=== PATIENT | male | born 1950 | race Caucasian/White ===

== ENCOUNTER 2021-02-21 22:04 | Emergency (ER) | payer MEDICARE, OTHER ==
[2021-02-21 23:34] LABS: HEMOGLOBIN 13.9 gm/dl (14.0-17.5); RED BLOOD COUNT 4.17 M/UL (4.20-5.50); WHITE BLOOD COUNT 11.2 K/UL (4.5-11.0)
[2021-02-22] MEDS ORDERED: PERCOCET 5-3251 EACH PO (01:50)
[2021-02-22] MEDS ORDERED: FLOMAX 0.4 MG0.4 MG PO (01:50)
== END 2021-02-22 02:20 | disposition home or self-care (01) ==
LOC: ER1 22:04
PROVIDERS: Emergency Medicine
DX: N13.2 Hydronephrosis with renal and ureteral calculous obstruction (principal); N28.9 Disorder of kidney and ureter, unspecified; I10 Essential (primary) hypertension
CPT/HCPCS: 80053; 81001; 85025; 87086; 96372; 99284; J1885; Q9967